=== PATIENT | male | born 1980 | race Caucasian/White ===

== ENCOUNTER 2016-08-07 05:38 | Emergency (ER) | payer MEDICAID ==
[2016-08-07] MEDS ORDERED: TRAMADOL 50 MG TAB ONE (06:31)
[2016-08-07] MEDS ORDERED: KETOROLAC 60 MG/2 ML VIAL IM ONE (06:31)
== END 2016-08-07 07:09 | disposition home or self-care (01) ==
LOC: ER 05:38
DX: M25.511 Pain in right shoulder (principal)
CPT/HCPCS: 96372

== ENCOUNTER 2016-08-09 16:29 | Emergency (ER) | payer MEDICAID ==
[2016-08-09] MEDS ORDERED: METHYLPRED SOD SUCC 125 MG/2 ML VIAL ONE (18:56)
[2016-08-09] MEDS ORDERED: KETOROLAC 60 MG/2 ML VIAL IM ONE (18:56)
== END 2016-08-09 19:57 | disposition home or self-care (01) ==
LOC: ER 16:29
DX: S46.011A Strain of muscle(s) and tendon(s) of the rotator cuff of right shoulder, initial encounter (principal); F17.210 Nicotine dependence, cigarettes, uncomplicated
CPT/HCPCS: 96372